=== PATIENT | male | born 1940 | race Caucasian/White ===

== ENCOUNTER 2017-06-28 13:25 | Emergency (ER) | payer OTHER ==
[~2017-06-28] VITALS: Ht 167.6 cm; Wt 81.1 kg
[~2017-06-28 13:25] MED LIST: ASPIRIN81 M2 PO; ATIVAN1 MG PO; AZELASTINE HCL6 ML BOTH EYES; BUSPAR10 MG PO; CIPRO500 MG PO; FLAGYL500 MG PO; MIRALAX17 GM PO; NORCO 5/3251 TABLET PO; SIMVASTATIN10 MG PO; SINGULAIR10 MG PO; SUPER B MAXI C0.4 MG PO; TRAZODONE HCL50 MG PO; VITAMIN D31000 UNIT PO; ZOFRAN ODT4 MG PO
[2017-06-28] MEDS ORDERED: LIDODERM 5% P1 PATCH TD (15:54)
[2017-06-28] MEDS ORDERED: PERCOCET 5/31 TABLET PO (15:54)
[2017-06-28 16:13] VITALS: BP 127/75
== END 2017-06-28 16:14 | disposition home or self-care (01) ==
LOC: EME 13:25 → RME 13:25
DX: S22.31XA Fracture of one rib, right side, initial encounter for closed fracture (principal); T14.8XXA Other injury of unspecified body region, initial encounter; M25.551 Pain in right hip; W11.XXXA Fall on and from ladder, initial encounter; Y93.89 Activity, other specified; F41.9 Anxiety disorder, unspecified; Z96.641 Presence of right artificial hip joint; Z87.891 Personal history of nicotine dependence; Z85.038 Personal history of other malignant neoplasm of large intestine; Z79.82 Long term (current) use of aspirin
CPT/HCPCS: 70450; 71101; 73522; 93005; 99281; 99284